=== PATIENT | female | born 1995 | race Two or more races ===

== ENCOUNTER 2021-04-13 12:47 | Emergency (ER) | payer BC ==
[~2021-04-13] VITALS: Ht 157.5 cm; Wt 58.0 kg
[2021-04-13 12:55] VITALS: BP 123/75
[2021-04-13] MEDS ORDERED: ALBUTEROL SULFATE 2.5 MG/3 ML NEBU. NEB ONE (13:15)
[2021-04-13 13:26] LABS: BILIRUBIN,URINE NEGATIVE (NEG); CLARITY,URINE CLEAR; COLOR,URINE YELLOW; NITRITE,URINE NEGATIVE (NEG); PROTEIN,URINE NEGATIVE (NEG-TRACE); UROBILINOGEN,URINE 0.2 mg/dL (0.2 mg/dL)
[2021-04-13 13:43] LABS: RBC,URINE 0 /HPF (0-2); WBC,URINE OCC /HPF (0-4)
[2021-04-13 13:44] LABS: BACTERIA,URINE MODERATE /HPF (0-FEW)
[2021-04-13] MEDS ORDERED: ALBUTEROL SULFATE 2.5 MG/3 ML NEBU. CONT NEB ONE (13:45)
[2021-04-13] MEDS ORDERED: predniSONE 10 MG TABLET PO ONE (13:45)
--- NOTE | 2021-04-13 14:18 | RAD ---
EXAM: AP View of the chest DATE: 04/13/2021 1:09 PM INDICATION: Reason: Shortness of breath COMPARISON: No Prior FINDINGS: The heart is not enlarged. Mediastinal and hilar contours are normal. No focal parenchymal airspace opacity. No pleural effusion or pneumothorax. IMPRESSION: 1. No radiographic evidence for acute cardiopulmonary process. Electronically signed by: Markos Chery MD (04/13/2021 2:16 PM) REINIER
--- NOTE | 2021-04-13 14:23 | PHYS DOC ---
Past Medical History Past Surgical History: No Surgical History Smoking Status: Never Smoker Alcohol Use: None General Adult EDM: Chief Complaint: ASTHMA HPI: HPI: Patient is a 26-year-old female who presents to the emergency department complaining of asthma attack for the past 6 days. Patient states she is out of her MDI inhaler. Patient reports her last asthma attack was approximately 1 year ago. Patient reports this is a normal exacerbation for her asthma. Reports her last menstrual cycle was the first week of this month with normal duration of flow. Patient denies chest pains or chest palpitations. Denies fever or chills, denies cough or congestion, denies other physical complaints or physical concerns. Review of Systems: Review of Systems: 14 body systems of review of systems have been reviewed. See HPI for pertinent positives and negative responses, otherwise all other systems are negative, nonpertinent or noncontributory. Constitutional: Negative except as outlined in HPI above. Skin: Negative except as outlined in HPI above. Eyes: Negative except as outlined in HPI above. HENT: Negative except as outlined in HPI above. Respiratory: Negative except as outlined in HPI above. Cardiovascular: Negative except as outlined in HPI above. GI: Negative except as outlined in HPI above. : Negative except as outlined in HPI above. Musculoskeletal: Negative except as outlined in HPI above. Integument: Negative except as outlined in HPI above. Neurologic: Negative except as outlined in HPI above. Endocrine: Negative except as outlined in HPI above. Lymphatic: Negative except as outlined in HPI above. Psychiatric: Negative except as outlined in HPI above. Heart Score: C/O Chest Pain: No Risk Factors: Risk Factors: DM, Current or recent (<one month) smoker, HTN, HLP, family history of CAD, obesity. Risk Scores: Score 0 - 3: 2.5% MACE over next 6 weeks - Discharge Home Score 4 - 6: 20.3% MACE over next 6 weeks - Admit for Clinical Observation Score 7 - 10: 72.7% MACE over next 6 weeks - Early Invasive Strategies Current Medications: Current Medications Medications (Trade) Dose Ordered Sig/Caron Start Time Stop Time Status Last Admin Dose Admin Albuterol Sulfate (Ventolin Neb Soln) 10 mg 1X ONCE 04/13/21 13:45 04/13/21 13:46 DC 04/13/21 13:45 10 MG Prednisone (Prednisone) 50 mg 1X ONCE 04/13/21 13:45 04/13/21 13:46 DC 04/13/21 13:49 50 MG Allergies: Allergies: Allergies Coded Allergies Type Severity Reaction Last Updated Verified No Known Drug Allergies 04/13/21 No Physical Exam: PE: Constitutional: Well developed, well nourished, no acute distress, non-toxic appearance. 26-year-old female in no apparent distress. HENT: Normocephalic, atraumatic. Patient speaking in full sentences. Eyes: Conjunctiva normal, no discharge. Neck: Normal range of motion, no stridor. Cardiovascular: No cyanosis appreciated, distal cap refill less than 2 seconds. Lungs & Thorax: Patient is in no respiratory distress, no I/E wheezing appreciated audibly, scattered I/E wheezing in all lung carl for auscultation. The patient is not hypoxic. No accessory muscle use, no tripoding or self splinting. Abdomen: Nontender, no abnormalities noted. Skin: Warm, dry, no erythema, no rash. Back: No tenderness, no deformities. Extremities: No tenderness, no cyanosis, no clubbing, ROM intact, no edema. Neurologic: Alert and oriented X 3, normal motor function, normal sensory function, no focal deficits noted. Psychologic: Affect normal, judgement normal, mood normal. Current Patient Data: Labs: Laboratory Tests Test 04/13/21 13:12 04/13/21 13:34 Urine Collection Type Unknown Urine Color Yellow Urine Clarity Clear Urine pH 7.0 (<5.0-8.0) Urine Specific [place] 1.025 (1.000-1.030) Urine Protein Negative mg/dL (NEG-TRACE) Urine Glucose (UA) Negative mg/dL (NEG) Urine Ketones (Stick) Negative mg/dL (NEG) Urine Blood Negative (NEG) Urine Nitrite Negative (NEG) Urine Bilirubin Negative (NEG) Urine Urobilinogen Dipstick 0.2 mg/dL (0.2 mg/dL) Urine Leukocyte Esterase Negative (NEG) Urine RBC 0 /HPF (0-2) Urine WBC Occ /HPF (0-4) Urine Squamous Epithelial Cells Many /LPF Urine Bacteria Moderate /HPF (0-FEW) Urine Mucus Marked /LPF POC Urine HCG, Qualitative Hcg negative (Negative) Vital Signs: Vital Signs Date Time Temp Pulse Resp B/P (MAP) Pulse Ox O2 Delivery O2 Flow Rate FiO2 04/13/21 13:52 93 Room Air 04/13/21 12:55 98.9 77 18 123/75 (91) 98.9 EKG: EKG: [] Radiology/Procedures: Radiology/Procedures: STATUS: REG ER ORD. PHYSICIAN: JOVANNA COE APRN REASON: Shortness of breath PROCEDURE: CHEST AP ONLY EXAM: AP View of the chest DATE: 04/13/2021 1:09 PM INDICATION: Reason: Shortness of breath COMPARISON: No Prior FINDINGS: The heart is not enlarged. Mediastinal and hilar contours are normal. No focal parenchymal airspace opacity. No pleural effusion or pneumothorax. IMPRESSION: 1. No radiographic evidence for acute cardiopulmonary process. Electronically signed by: Markos Chery MD (04/13/2021 2:16 PM) REINIER Course & Med Decision Making: Course & Med Decision Making Pertinent Labs and Imaging studies reviewed. (See chart for details) 26-year-old female, vital signs reviewed, resents emerged from concerning asthma attack for 6 days and being out of her MDI inhaler. Physical examination consistent with acute asthma exacerbation. Will order urine test, albuterol nebulizer treatment. Patient is not for urine test, will order oral prednisone regimen, upon reevaluation after first nebulizer treatment, patient continues to be nontoxic in appearance, in no respiratory distress, light inspiratory/expiratory wheezes appreciated for auscultation, will order additional breathing treatment, chest x-ray ordered. Upon reevaluation of the patient, no wheezing appreciated per auscultation, patient remains in no respiratory distress, is nontoxic in appearance. Discussed with patient home medications MDI use and prednisone prescription, patient gave verbal understanding of and is amenable to ED discharge planning. Discussed with the patient all findings and diagnostic testing as well as the need to follow-up with their primary care provider for further evaluation and treatment or return to the ED if any new or worsening symptoms. Strict return precautions were also discussed at length, the patient voiced understanding and agreement with the discharge planning. The patient was nontoxic in appearance, in no apparent distress, and hemodynamically stable at the time of disposition. Dragon Disclaimer: Dragon Disclaimer: This electronic medical record was generated, in whole or in part, using a voice recognition dictation system. Departure Departure Impression: Primary Impression: Asthma Qualified Codes: J45.21 - Mild intermittent asthma with (acute) exacerbation Disposition: 01 HOME / SELF CARE / HOMELESS Condition: GOOD Patient Instructions: Asthma, Acute Bronchospasm Additional Instructions: Lo vieron hoy en el departamento de emergencias por un ataque de asma, lo trataron hoy con un medicamento nebulizador de albuterol, eren le comenc un rgimen de prednisona, no necesita comenzar a neyda freed prednisona recetada hasta maana, le he enviado gabriele receta para freed inhalador de prednisona y albuterol a la farmacia de freed eleccin. Por favor, use renny se indica. Eren he proporcionado gabriele lista de proveedores de atencin primaria del nichelle para que pueda establecer atencin mdica primaria, elija un proveedor de atencin primaria para gibran pronto. Margaux por visitar nuestro Departamento de Priyanka rgencias. Fue un placer atenderlo hoy en el departamento de emergencias y le agradecemos que nos haya confiado freed atencin. Si surge algn problema adicional, no dude en volver a visitarnos. Julien un seguimiento con freed proveedor de atencin primaria para que puedan planificar atencin adicional si es necesario y conocer el problema que tuvo. Si los sntomas empeoran, regrese al Departamento de Emergencias. Cualquier sntoma preocupante que comience, renny dolor en el pecho, falta de aire, debilidad o entumecimiento en un lado del cuerpo, fiebre rianna o cualquier otro sntoma preocupante, regresa a la nat de emergencias. You were seen today in the emergency department for an asthma attack, you were treated today with albuterol nebulizer medication, I also started you on a prednisone regimen, you do not need to start taking your prescribed prednisone until tomorrow, I have sent a prescription for your prednisone and albuterol inhaler to the pharmacy of your choice. Please use as directed. I have also provided a list of area primary care providers for you to establish primary health care, please choose a primary care provider to see soon. Thank you for visiting our Emergency Department. It was a pleasure taking care of you today in the emergency department and we appreciate you trusting us with your care. If any additional problems come up don't hesitate to return to visit us. Please f ollow up with your primary care provider so they can plan additional care if needed and know about the problem that you had. If symptoms worsen come back to the Emergency Department. Any concerning symptoms that start such as chest pain, shortness of air, weakness or numbness on one side of the body, running high fevers or any other concerning symptoms return to the ER. [facility] [address] [place] [address] [facility] [address] [place] [address] [facility] [address] [facility] [place] [place] [address] [facility] [address] [place] [address] [facility] [address] [place] [address] [facility] [address] [place] [address] [facility] [address] [place] [address] [facility] [address] [place] [address] [facility] [address] [place] [address] [facility] [address] [place] [address] Scripts Albuterol Sulfate (Proair Hfa) 8.5 Gm Hfa.aer.ad 2 PUFF IH PRN Q4-6HRS PRN for wheezing for 21 Days, #1 INHALER 0 Refills Prov: JOVANNA COE POSTAL CARRIER 04/13/21 Prednisone (PREDNISONE) 20 Mg Tablet 2 TAB PO DAILY for asthma for 5 Days, #10 TAB 0 Refills Prov: JOVANNA COE APRN 04/13/21 JOVANNA COE APRN Apr 13, 2021 14:23
[2021-04-13] MEDS ORDERED: PRED20TA PO (15:34)
[2021-04-13] MEDS ORDERED: ALBU2.5V8 IH (15:34)
== END 2021-04-13 15:30 | disposition home or self-care (01) ==
LOC: ER 12:47
DX: J45.21 Mild intermittent asthma with (acute) exacerbation (principal)
CPT/HCPCS: 71045; 81001; 81025; 87086; 94640; 94644; 99285; J7512; J7613

== ENCOUNTER 2021-06-15 20:25 | Emergency (ER) | payer BC ==
[~2021-06-15] VITALS: Ht 167.6 cm; Wt 59.1 kg
[~2021-06-15 20:25] MED LIST: ALBU2.5V8 IH; PRED20TA PO
--- NOTE | 2021-06-15 21:50 | PHYS DOC ---
Past Medical History Past Surgical History: No Surgical History Smoking Status: Never Smoker Alcohol Use: None General Adult EDM: Chief Complaint: ASTHMA HPI: HPI: Patient is a 26-year-old German-speaking female female who presents to the emergency department for an asthma exacerbation. motor vehicle parts interpreter phone was used. Patient reports that she started feeling short of breath this morning. She has been using her albuterol inhaler with little relief. Patient does not have breathing treatments at home. Patient denies fever, nausea, vomiting. She reports intermittent cough. Patient's vital signs are stable. Review of Systems: Review of Systems: Constitutional: See HPI Respiratory: See HPI GI: See HPI Heart Score: C/O Chest Pain: No Risk Factors: Risk Factors: DM, Current or recent (<one month) smoker, HTN, HLP, family history of CAD, obesity. Risk Scores: Score 0 - 3: 2.5% MACE over next 6 weeks - Discharge Home Score 4 - 6: 20.3% MACE over next 6 weeks - Admit for Clinical Observation Score 7 - 10: 72.7% MACE over next 6 weeks - Early Invasive Strategies Current Medications: Current Medications Medications (Trade) Dose Ordered Sig/Caron Start Time Stop Time Status Last Admin Dose Admin Albuterol/ Ipratropium (Duoneb) 3 ml 1X ONCE 06/15/21 21:45 06/15/21 21:46 UNV Prednisone (Prednisone) 60 mg 1X ONCE 06/15/21 22:00 06/15/21 22:01 Allergies: Allergies: Allergies Coded Allergies Type Severity Reaction Last Updated Verified No Known Drug Allergies 04/13/21 No Physical Exam: PE: Constitutional: Well developed, well nourished, no acute distress, non-toxic appearance. [] HENT: Normocephalic, atraumatic, bilateral external ears normal, oropharynx moist, no oral exudates, nose normal. [] Eyes: PERRL, EOMI, conjunctiva normal, no discharge. [] Neck: Normal range of motion, no stridor Cardiovascular:Heart rate regular rhythm, no murmur [] Lungs & Thorax: Wheezing noted throughout Abdomen: Bowel sounds normal, soft, no tenderness, no masses, no pulsatile masses. [] Skin: Warm, dry, no erythema, no rash. [] Back: Normal range of motion Extremities: No tenderness, no cyanosis, no clubbing, ROM intact, no edema. [] Neurologic: Alert and oriented X 3, normal motor function, normal sensory function, no focal deficits noted. [] Psychologic: Affect normal, judgement normal, mood normal. [] Current Patient Data: Labs: Laboratory Tests Test 06/16/21 00:12 SARS-CoV-2 Antigen (Rapid) Negative Current Medications Medications (Trade) Dose Ordered Sig/Caron Route PRN Reason Start Time Stop Time Status Last Admin Dose Admin Prednisone (Prednisone) 60 mg 1X ONCE PO 06/15/21 22:00 06/15/21 22:01 DC 06/15/21 22:06 Albuterol/ Ipratropium (Duoneb) 3 ml 1X ONCE NEB 06/15/21 22:00 06/15/21 22:01 DC 06/15/21 22:40 Albuterol/ Ipratropium (Duoneb) 3 ml 1X ONCE NEB 06/15/21 23:30 06/15/21 23:31 DC 06/15/21 23:39 Albuterol/ Ipratropium (Duoneb) 3 ml 1X ONCE NEB 06/16/21 00:15 06/16/21 00:16 DC 06/16/21 00:05 EKG: EKG: [] Radiology/Procedures: Radiology/Procedures: []PROCEDURE: CHEST PA & LATERAL Exam: Chest 2 views INDICATION: Short of air TECHNIQUE: Frontal and lateral views the chest Comparisons: 04/13/2021 FINDINGS: The cardiomediastinal silhouette and pulmonary vessels are within normal limits. The lung and pleural spaces are clear. IMPRESSION: No acute cardiopulmonary process. Electronically signed by: Sary Light MD (06/15/2021 10:17 PM) [facility] DICTATED and SIGNED BY: SARY LIGHT MD DATE: 06/15/212213 Course & Med Decision Making: Course & Med Decision Making Pertinent Labs and Imaging studies reviewed. (See chart for details) [] Patient presents to the emergency department for asthma exacerbation. Pat ient is noted to be wheezing throughout lung carl. Her vital signs are stable. She was treated with a steroid and breathing treatment. Following breathing treatment, patient continues to have scattered wheezing. Patient will be treated with another breathing treatment. Patient's breath sounds have improved following second breathing treatment but she continues to have wheezi ng. Patient given 3rd duoneb and will have covid testing. Covid result is negative. Patient continues to have mild wheezing but her vital signs are stable and she is non labored. Patient will be discharged home with a steroid and a ProAir inhaler. Patient's vital signs are stable, she is not hypoxic or tachypneic. I discussed with patient all findings and diagnostic testing as w ell as the need to follow-up with PCP for further evaluation and treatment or return to the ER if any new or worsening symptoms. Strict return precautions were also discussed at length. Patient voiced understanding and agreement with the plan. Patient is hemodynamically stable at the time of disposition. Dragon Disclaimer: [employer] Disclaimer: This electronic medical record was generated, in whole or in part, using a voice recognition dictation system. Departure Departure Impression: Primary Impression: Asthma Qualified Codes: J45.901 - Unspecified asthma with (acute) exacerbation Disposition: HOME / SELF CARE / HOMELESS Condition: GOOD Referrals: NO PCP (PCP) Patient Instructions: Asthma Attacks, Prevention, Asthma, Adult Additional Instructions: You were seen in the emergency department today for an asthma exacerbation. Your chest x-ray did not show any acute findings. You will be treated with an albuterol inhaler and steroids. Follow-up with your primary care provider tomorrow regarding your ER visit. Return to the emergency department if you develop shortness of breath, chest pain, high fevers refractory to treatment, intractable nausea or vomiting or any new or worsening concerns. Scripts Prednisone (PREDNISONE) 20 Mg Tablet 1 TAB PO BID for 5 Days, #10 TAB 0 Refills Prov: ALE VERDUZCO APRN 06/15/21 Albuterol Sulfate (Proair Hfa) 8.5 Gm Hfa.aer.ad 2 PUFF IH PRN Q4-6HRS PRN for wheezing for 21 Days, #1 INHALER 0 Refills Prov: ALE VERDUZCO APRN 06/15/21 ALE VERDUZCO APRN Jun 15, 2021 21:50
[2021-06-15] MEDS ORDERED: IPRATRPIUM/ALBUTEROL 0.5/2.5MG 3 ML NEBU. NEB ONE ×2 (22:00→23:30)
[2021-06-15] MEDS ORDERED: predniSONE 20 MG TABLET PO ONE (22:00)
--- NOTE | 2021-06-15 22:20 | RAD ---
Exam: Chest 2 views INDICATION: Short of air TECHNIQUE: Frontal and lateral views the chest Comparisons: 04/13/2021 FINDINGS: The cardiomediastinal silhouette and pulmonary vessels are within normal limits. The lung and pleural spaces are clear. IMPRESSION: No acute cardiopulmonary process. Electronically signed by: Marce Yap MD (06/15/2021 10:17 PM) EDILBERTO
[2021-06-15] MEDS ORDERED: ALBU2.5V8 IH (23:43)
[2021-06-15] MEDS ORDERED: PRED20TA PO (23:43)
[2021-06-16] MEDS ORDERED: IPRATRPIUM/ALBUTEROL 0.5/2.5MG 3 ML NEBU. NEB ONE (00:15)
[2021-06-16 00:47] VITALS: BP 114/71
== END 2021-06-16 01:09 | disposition home or self-care (01) ==
LOC: ER 20:25
DX: J45.901 Unspecified asthma with (acute) exacerbation (principal); Z20.822 Contact with and (suspected) exposure to COVID-19
CPT/HCPCS: 71046; 87426; 94640; 99285; J7512